=== PATIENT | female | born 1945 | race Caucasian/White ===

== ENCOUNTER → 2022-04-08 | Outpatient (CLI) | payer MEDICARE ==
[~2022-04-08] MED LIST: 5HTP PO; BIOT5TAB PO; C250T PO; CALC-52 PO; CEPH500C PO; CHOL200018 PO; COCO1000 PO; FEXO60TA PO; GARL1500 PO; GLUTATHIONE PO; HYDR-3454 PO; IPRA3AMP19 IH; IRON1CAP10 PO; KCL20TCR PO; LEVO500C PO; MAGN250T7 PO; MELO-195 PO; OLIV250C PO; OMEGA-3 + VITA1 EAC1 PO; PARO10TA2 PO; PROBIOTIC1 EACH PO; PYRI50CA PO; SELE200T2 PO; TORS20TA2 PO; UBID100T7 PO; VITA1TAB30 PO; VITA400T7 PO; ZINC50TA49 PO; [UNRECOGNIZED DRUG - OTHER] PO
--- NOTE | 2022-04-09 13:55 | Diagnostic Imaging Report ---
INDICATION: Right renal mass which is suspicious for urothelial carcinoma. TECHNIQUE: The serum blood glucose level at the time of injection was 108 mg/dL. The patient was administered 13.3 mCi of F-18 FDG intravenously in the right antecubital location and PET imaging was performed from the top of the skull to the mid thighs. A noncontrast CT was also performed for attenuation correction and anatomic correlation. COMPARISON: No prior imaging is available for comparison. FINDINGS: There is symmetric activity throughout the brain. There is a hypermetabolic mass in the left lobe of the thyroid measuring 19 mm. This shows an SUV max of 21.2. No other abnormality in the neck is identified. The chest is without evidence of hypermetabolic activity in the mediastinum or hilum. The pulmonary parenchyma is unremarkable. There is a large hiatal hernia present. There is a large amount of activity in the right kidney, difficult to separate from the collecting system versus a mass. The patient does have a right-sided ureteral stent in place. No definite hypermetabolic lymphadenopathy in the abdomen or pelvis is identified. IMPRESSION: 1. Hypermetabolic left thyroid mass. Dedicated thyroid ultrasound would be recommended for further evaluation. 2. Suspected mass in the right kidney where there is a large amount of activity present; however, this is difficult to separate from the right renal collecting system. Correlation with conventional CT or MRI imaging would be recommended if not already performed. No definite hypermetabolic lymphadenopathy in the abdomen or pelvis is identified. Dictated by: Dictated on workstation # [id number]
== END ==
LOC: RAD 12:45
PROVIDERS: ATTEND Internal Medicine Hematology & Oncology
DX: N28.89 Other specified disorders of kidney and ureter (principal); E04.8 Other specified nontoxic goiter; Z85.3 Personal history of malignant neoplasm of breast
CPT/HCPCS: 78815; A9552